=== PATIENT | male | born 1980 | race Two or more races ===

== ENCOUNTER → 2017-01-31 | Outpatient (CLI) | payer OTHER ==
[~2017-01-31] MED LIST: BACT800T5 PO; TYLE650T35 PO
[2017-01-31 16:22] LABS: MEAN CORPUSCULAR HEMOGLOBIN 31.5 pg (27.0-33.0); MEAN CORPUSCULAR HGB CONC 33.3 g/dl (32.0-36.5); MEAN CORPUSCULAR VOLUME 94.5 fl (80.0-96.0); RED CELL DISTRIBUTION WIDTH 12.2 % (11.5-14.5); WHITE BLOOD COUNT 8.9 K/mm3 (4.0-10.0)
[2017-01-31 16:30] LABS: INR 1.06
[2017-01-31 16:39] LABS: ANION GAP 5 MEQ/L (8-16); BLOOD UREA NITROGEN 8 MG/DL (7-18); CALCIUM LEVEL 9.4 MG/DL (8.5-10.1); CARBON DIOXIDE LEVEL 30 MEQ/L (21-32); CHLORIDE LEVEL 104 MEQ/L (98-107); CREATININE FOR GFR 1.11 MG/DL (0.70-1.30); GLOMERULAR FILTRATION RATE > 60.0 (>60); GLUCOSE, FASTING 91 MG/DL (70-105); POTASSIUM SERUM 4.2 MEQ/L (3.5-5.1); SODIUM LEVEL 139 MEQ/L (136-145)
== END ==
LOC: M LAB 15:47
PROVIDERS: ATTEND Nurse Practitioner Women's Health
DX: Z01.818 Encounter for other preprocedural examination (principal); N47.8 Other disorders of prepuce

== ENCOUNTER 2017-02-02 08:26 | Day surgery (SDC) | payer OTHER ==
[~2017-02-02] VITALS: Ht 170.2 cm; Wt 78.0 kg
[2017-02-02] MEDS ORDERED: LR 1,000 ML IV ONE (08:45)
[2017-02-02] MEDS ORDERED: BUPIVACAINE HCL 0.25% 30 ML VIAL As Ordered ONE (08:54)
[2017-02-02] MEDS ORDERED: BACITRACIN OINT 30GM As Ordered ONE (08:54)
[2017-02-02] MEDS ORDERED: LIDOCAINE 1% SDV INJ 30 ML VIAL As Ordered ONE (08:54)
[2017-02-02] MEDS ORDERED: LIDOCAINE 2% INJ 100 MG/5 ML SDV (FOR ANES.) As Ordered ONE (10:15)
[2017-02-02] MEDS ORDERED: fentaNYL 100 MCG/2 ML INJECTION (J3010) As Ordered ONE (10:15)
[2017-02-02] MEDS ORDERED: PROPOFOL 200 MG/20 ML VIAL As Ordered ONE (10:15)
[2017-02-02] MEDS ORDERED: dexameTHASONE 4 MG/ML 1ML VIAL (J1100) As Ordered ONE (10:15)
[2017-02-02] MEDS ORDERED: MIDAZOLAM INJ 2 MG/2 ML VIAL (J2250) As Ordered ONE (10:15)
[2017-02-02] MEDS ORDERED: ONDANSETRON 4MG/2ML VIAL (J2405) As Ordered ONE (13:32)
[2017-02-02] MEDS ORDERED: KETOROLAC 60 MG/2 ML VIAL (J1885) As Ordered ONE (13:38)
[2017-02-02] MEDS ORDERED: TYLE650T35 PO (14:02)
[2017-02-02] MEDS ORDERED: BACT800T5 PO (14:02)
[2017-02-02] MEDS ORDERED: LR 1,000 ML IV SCH (14:30)
[2017-02-02] MEDS ORDERED: PERCOCET 5MG/325MG TAB PO PRN (14:30)
[2017-02-02] MEDS ORDERED: ACETAMINOPHEN 650MG ER TAB (TYLENOL ARTHRITIS) PO PRN (14:30)
[2017-02-02] MEDS ORDERED: ONDANSETRON 4MG/2ML VIAL (J2405) IV PRN (14:30)
[2017-02-02] MEDS ORDERED: fentaNYL 100 MCG/2 ML INJECTION (J3010) IV PRN (14:30)
[2017-02-02] MEDS ORDERED: HYDROmorphone HCL 1 MG/ML SYRINGE (J1170) IV PRN (14:30)
[2017-02-02 15:40] VITALS: BP 124/66
[2017-02-02] MEDS ORDERED: BACTRIM 160MG/800MG DS TAB PO SCH (21:00)
--- NOTE | 2017-02-03 23:16 | RO ---
DATE OF PROCEDURE: 02/02/2017 PREPROCEDURE DIAGNOSIS: Phimosis. POSTPROCEDURE DIAGNOSIS: Phimosis. PROCEDURE: Circumcision. SURGEON: Pablo Landeros MD CANAL STRUCTURE OPERATOR: None. ANESTHESIA: General. COMPLICATIONS: None. ESTIMATED BLOOD LOSS: N/A. HISTORY OF THE PRESENT ILLNESS: A 36-year-old male patient who has phimosis and recurrent balanitis. For this reason, he has consented for a circumcision. DESCRIPTION OF PROCEDURE: In a patient under general anesthesia in supine position, after prepping and draping the area of concern, which included the entire genitalia and abdomen, we started by doing a penile block with 1% lidocaine and Marcaine 0.25%, a total of 10 mL around the base of the penis. We then proceeded to do an incision 1 cm away from the sulcus of the glans in circumferential fashion, and then 3 cm proximal to the base of the shaft, we actually did another circumferential incision with a cold knife, a Bistoury blade and a #15 blade. We then excised the skin between both incisions and fulgurated bleeding vessels with electro Bovie cautery. We approximated both skin edges with a catgut chromic #3-0 in separate stitches. We then placed Bacitracin cream, wrapped the penis with a 4 x 4 and Coban. PLAN: The patient will go home today with antibiotic and pain medications, followup at [facility] in about 3 weeks. He cannot have sexual intercourse for 1 month.
== END 2017-02-02 16:35 | disposition home or self-care (01) ==
LOC: M SDC 08:26
PROVIDERS: ATTEND Urology
DX: N47.1 Phimosis (principal); Z87.891 Personal history of nicotine dependence
CPT/HCPCS: 54161; 88304; J0690; J1100; J1885; J2250; J2405; J3010

== ENCOUNTER 2022-06-16 15:49 | Emergency (ER) | payer OTHER ==
[~2022-06-16] VITALS: Ht 172.7 cm; Wt 79.0 kg
[~2022-06-16 15:49] MED LIST changes: +ACET650T61 PO; -TYLE650T35 PO
[2022-06-16 18:16] VITALS: BP 128/98
== END 2022-06-16 18:32 | disposition home or self-care (01) ==
LOC: M ED 15:49
DX: R76.11 Nonspecific reaction to tuberculin skin test without active tuberculosis (principal); F17.200 Nicotine dependence, unspecified, uncomplicated